=== PATIENT | male | born 1940 | race Caucasian/White ===

== ENCOUNTER 2016-09-06 13:24 | Emergency (ER) | payer MEDICARE, OTHER ==
--- NOTE | 2016-09-06 13:55 | REP ---
Clinical: Trauma. Technique: AP, lateral, bilateral oblique views. Findings: There is an oblique fracture involving the lateral malleolus with overlying soft tissue swelling. Widening to the contralateral aspect of the mortise suggests associated ligamentous injuries. Impression: Acute lateral malleolus fracture. Signed by Nate Cabrera MD 09/06/2016 01:46 P
--- NOTE | 2016-09-06 14:50 | EDDOCDS ---
Nurse's Notes [facility] Name: Arnaldo Navarro Age: 76 yrs Sex: Male : 1940 Arrival Date: 09/06/2016 Time: 13:24 Bed 13 Private MD: Mike Monk Diagnosis: Nondisplaced fracture of lateral malleolus of left fibula Presentation: 09/06 13:26 Presenting complaint: Patient states: slipped and twisted left ankle yesterday dy afternoon. swollen and bruised. The patients lower extremity has obvious bruising present on examination. has obvious swelling present on examination. Adult Sepsis Screening: The patient does not have new or worsening altered mentation. Patient's respiratory rate is less than 22. Systolic blood pressure is greater than 100. Patient has a qSOFA score of 0- Negative Sepsis Screen. Suicide/Homicide risk assessment- the patient denies having any suicidal and/or homicidal ideations and does not present with any other emotional, behavioral or mental health complaints. Status: Patient is not a family services manager or dependent. Transition of care: patient was not received from another setting of care. 13:26 Acuity: XANDER Level 4 dy 13:26 Method Of Arrival: Walkin/Carried/Asstd dy Triage Assessment: 13:28 General: Appears in no apparent distress. Pain: Location: left lateral ankle. dy Musculoskeletal: Capillary refill < 3 seconds No deformity noted Reports pain in left lateral ankle. Historical: - Allergies: No known drug Allergies; - Home Meds: 1. glipizide 2.5 mg Oral tr24 1 tabs once daily 2. lisinopril-hydrochlorothiazide 20-25 mg oral tab 1 tab once daily 3. simvastatin 20 mg Oral tab 1 tab once daily 4. loratadine 10 mg Oral tab 1 tab once daily 5. metformin 500 mg oral tab 1 tab three times a day 6. allopurinol 300 mg Oral tab 0.5 tab once daily 7. fluocinonide 0.05 % topical oint 2 times per day 8. betamethasone valerate 0.1 % Topical crea once daily - PMHx: Hypercholesterolemia; Hypertension; Asthma; Diabetes - NIDDM: controlled; Gout; - PSHx: none; - Social history: Smoking status: Patient states was never smoker of tobacco. No barriers to communication noted, The patient speaks fluent Turkish, Speaks appropriately for age. - Family history: Not pertinent. - : The pt / caregiver states he / she is not on anticoagulants. Home medication list is obtained from the patient. - Exposure Risk Screening:: None identified. Screenin:46 Screening information is obtained from the patient. Fall risk: No risks identified. jo3 Assistance ADL's: requires no assistance with activities of daily living. Abuse/DV Screen: The patient / caregiver reports he/she is: not in a situation that causes fear, pain or injury. Nutritional screening: No deficits noted. Advance Directives: There is no active DNR order. home support is adequate. Assessment: 14:03 General: Appears in no apparent distress, comfortable, Behavior is appropriate for age, jo3 cooperative, pleasant. Neurological: Level of Consciousness is awake, alert, Oriented to person, place, time. Respiratory: Airway is patent Respiratory effort is even, unlabored. Derm: Skin is pink, warm & dry. Musculoskeletal: Left lower leg with +2-+3 edema from mid calf to foot. Significant ecchymosis to NICO ankle and foot and dorsal aspect of left foot. 14:46 Reassessment: Pt instructed on crutches and continues to ambulated with full weight jo3 bearing on left foot whilst carrying crutches. Pt redirected to utilize crutches and not weight bear and he continues. discharged via wheelchair to his car . Vital Signs: 13:25 BP 167 / 95; Pulse 94; Resp 18 S; Temp 97.3; Pulse Ox 96% on R/A; Weight 79.38 kg (R); dd6 Height 5 ft. 8 in. (172.72 cm) (R); 14:27 BP 140 / 94; Resp 20; Temp 98.1(O); Pain 0/10; ls3 14:31 Pulse 102; Pulse Ox 94% on R/A; rn1 13:25 Body Mass Index 26.61 (79.38 kg, 172.72 cm) dd6 Vitals: 13:25 Log In Time: September 06, 2016 at 13:23. dd6 ED Course: 13:25 Patient visited by Dylon Marin PCA. dd6 13:25 Mike Monk MD is Private Physician. dd6 13:25 Patient moved to Waiting dd6 13:26 Patient moved to Pre RCE dd6 13:27 Triage Initiated dy 13:36 Patient moved to 13 sd1 13:37 [facility] le 13:40 Patient visited by Teri Gonsalez FNP. le 13:40 Patient visited by Teri Gonsalez FNP. le 14:04 Patient visited by Claribel Esparza,EMANI. jo3 14:05 Baldemar León is Referral Physician. le 14:17 [facility] Payment Agreement was scanned into [employer] and attached to record. mm15 14:38 Ankle, Complete Returned. EDMS 14:46 The patient / caregiver is instructed regarding the plan of care and ED course. jo3 14:46 No IV's were initiated during this patient's visit. No procedures done that require jo3 assistance. Order Results: Radiology Order: Ankle, Complete Test: Ankle, Complete REASON FOR EXAMINATION: Trauma; Clinical: Trauma.; ; Technique: AP, lateral, bilateral oblique views.; ; Findings:; There is an oblique fracture involving the lateral malleolus with overlying soft; tissue swelling. Widening to the contralateral aspect of the mortise suggests; associated ligamentous injuries.; ; Impression:; Acute lateral malleolus fracture.; ; ; Signed by; Nate Cabrera MD 09/06/2016 01:46 P; Outcome: 14:06 Discharge ordered by Provider. le 14:46 Discharge Assessment: Patient awake, alert and oriented x 3. No cognitive and/or jo3 functional deficits noted. Patient verbalized understanding of disposition instructions. patient administered narcotics - no. The following High Risk Discharge criteria are identified: None. Discharged to home ambulatory. Condition: stable. Discharge instructions given to patient, Instructed on discharge instructions, follow up and referral plans. crutch walking, Demonstrated understanding of instructions, crutch walking, Pt was receptive of discharge instructions/ teaching. No special radiology studies were completed. Property sent home with patient. 14:49 Patient left the ED. jo3 Signatures: Dispatcher MedHo EDMS Cindy Morse MD MD sd1 Jamin Schneider, RN RN Claribel Juarez,RN RN jo3 Teri Gonsalez FNP FNP le [place]au, Daniell, COUNSELING PSYCHOLOGIST COUNSELING PSYCHOLOGIST dd6 Renetta Graves mm15 Bartolo Murray rn1 Kassidy Jauregui, COUNSELING PSYCHOLOGIST COUNSELING PSYCHOLOGIST ls3 Corrections: (The following items were deleted from the chart) 13:40 13:28 Home Meds: jose [facility]witt; dy dy MTDD
--- NOTE | 2016-09-06 14:50 | EDDOCDS ---
Physician Documentation [facility] Name: Arnaldo Navarro Age: 76 yrs Sex: Male : 1940 Arrival Date: 09/06/2016 Time: 13:24 Bed 13 Private MD: Mike Monk Disposition: 09/06 14:17 Critical Care: Critical care not applicable. le Disposition: 09/06/16 14:06 Discharged to Home/Self Care. Impression: Nondisplaced fracture of lateral malleolus of left fibula. - Condition is Stable. - Discharge Instructions: Elastic Bandage and RICE, Ankle Fracture, Cast or Splint Care, Crutch Use. - Medication Reconciliation, Local Pharmacy Hours form. - Follow up: Baldemar León; When: Today; Reason: Continuance of care. - Problem is new. - Symptoms are unchanged. - Notes: No weight bearing until authorized by Dr León Go directly to his office as he is expecting you Return to the ED for any further concerns Historical: - Allergies: No known drug Allergies; - Home Meds: 1. glipizide 2.5 mg Oral tr24 1 tabs once daily 2. lisinopril-hydrochlorothiazide 20-25 mg oral tab 1 tab once daily 3. simvastatin 20 mg Oral tab 1 tab once daily 4. loratadine 10 mg Oral tab 1 tab once daily 5. metformin 500 mg oral tab 1 tab three times a day 6. allopurinol 300 mg Oral tab 0.5 tab once daily 7. fluocinonide 0.05 % topical oint 2 times per day 8. betamethasone valerate 0.1 % Topical crea once daily - PMHx: Hypercholesterolemia; Hypertension; Asthma; Diabetes - NIDDM: controlled; Gout; - PSHx: none; - Social history: Smoking status: Patient states was never smoker of tobacco. No barriers to communication noted, The patient speaks fluent Icelandic, Speaks appropriately for age. - Family history: Not pertinent. - : The pt / caregiver states he / she is not on anticoagulants. Home medication list is obtained from the patient. - Exposure Risk Screening:: None identified. Vital Signs: 13:25 BP 167 / 95; Pulse 94; Resp 18 S; Temp 97.3; Pulse Ox 96% on R/A; Weight 79.38 kg / 175 dd6 lbs (R); Height 5 ft. 8 in. (172.72 cm) (R); 14:27 BP 140 / 94; Resp 20; Temp 98.1(O); Pain 0/10; ls3 14:31 Pulse 102; Pulse Ox 94% on R/A; rn1 13:25 Body Mass Index 26.61 (79.38 kg, 172.72 cm) dd6 MDM: 13:30 Ankle, Complete Ordered. EDMS 14:05 Crutches ordered. le 14:09 Financial registration complete. mm15 14:17 [facility] Payment Agreement was scanned into [employer] and attached to record. mm15 Signatures: Dispatcher MedHost EDJamin Osullivan RN RN dy [place], JenniferRN RN Teri Gray, UNDERGROUND DISTRIBUTION ENGINEER UNDERGROUND DISTRIBUTION ENGINEER Renetta Tyson mm15 The chart was reviewed and I authenticate all verbal orders and agree with the evaluation and treatment provided.Corrections: (The following items were deleted from the chart) 13:40 13:28 [place] Meds: [facility]; elaine henry Attachments: 14:17 [facility] Payment Agreement mm15 DAE
--- NOTE | 2016-09-08 15:50 | EDDOCDS ---
Nurse's Notes [facility] Name: Arnaldo Navarro Age: 76 yrs Sex: Male : 1940 Arrival Date: 09/06/2016 Time: 13:24 Bed 13 Private MD: Mike Monk Diagnosis: Nondisplaced fracture of lateral malleolus of left fibula Presentation: 09/06 13:26 Presenting complaint: Patient states: slipped and twisted left ankle yesterday dy afternoon. swollen and bruised. The patients lower extremity has obvious bruising present on examination. has obvious swelling present on examination. Adult Sepsis Screening: The patient does not have new or worsening altered mentation. Patient's respiratory rate is less than 22. Systolic blood pressure is greater than 100. Patient has a qSOFA score of 0- Negative Sepsis Screen. Suicide/Homicide risk assessment- the patient denies having any suicidal and/or homicidal ideations and does not present with any other emotional, behavioral or mental health complaints. Status: Patient is not a technical services specialist or dependent. Transition of care: patient was not received from another setting of care. 13:26 Acuity: XANDER Level 4 dy 13:26 Method Of Arrival: Walkin/Carried/Asstd dy Triage Assessment: 13:28 General: Appears in no apparent distress. Pain: Location: left lateral ankle. dy Musculoskeletal: Capillary refill < 3 seconds No deformity noted Reports pain in left lateral ankle. Historical: - Allergies: No known drug Allergies; - Home Meds: 1. glipizide 2.5 mg Oral tr24 1 tabs once daily 2. lisinopril-hydrochlorothiazide 20-25 mg oral tab 1 tab once daily 3. simvastatin 20 mg Oral tab 1 tab once daily 4. loratadine 10 mg Oral tab 1 tab once daily 5. metformin 500 mg oral tab 1 tab three times a day 6. allopurinol 300 mg Oral tab 0.5 tab once daily 7. fluocinonide 0.05 % topical oint 2 times per day 8. betamethasone valerate 0.1 % Topical crea once daily - PMHx: Hypercholesterolemia; Hypertension; Asthma; Diabetes - NIDDM: controlled; Gout; - PSHx: none; - Social history: Smoking status: Patient states was never smoker of tobacco. No barriers to communication noted, The patient speaks fluent Macedonian, Speaks appropriately for age. - Family history: Not pertinent. - : The pt / caregiver states he / she is not on anticoagulants. Home medication list is obtained from the patient. - Exposure Risk Screening:: None identified. Screenin:46 Screening information is obtained from the patient. Fall risk: No risks identified. jo3 Assistance ADL's: requires no assistance with activities of daily living. Abuse/DV Screen: The patient / caregiver reports he/she is: not in a situation that causes fear, pain or injury. Nutritional screening: No deficits noted. Advance Directives: There is no active DNR order. home support is adequate. Assessment: 14:03 General: Appears in no apparent distress, comfortable, Behavior is appropriate for age, jo3 cooperative, pleasant. Neurological: Level of Consciousness is awake, alert, Oriented to person, place, time. Respiratory: Airway is patent Respiratory effort is even, unlabored. Derm: Skin is pink, warm & dry. Musculoskeletal: Left lower leg with +2-+3 edema from mid calf to foot. Significant ecchymosis to NICO ankle and foot and dorsal aspect of left foot. 14:46 Reassessment: Pt instructed on crutches and continues to ambulated with full weight jo3 bearing on left foot whilst carrying crutches. Pt redirected to utilize crutches and not weight bear and he continues. discharged via wheelchair to his car . Vital Signs: 13:25 BP 167 / 95; Pulse 94; Resp 18 S; Temp 97.3; Pulse Ox 96% on R/A; Weight 79.38 kg (R); dd6 Height 5 ft. 8 in. (172.72 cm) (R); 14:27 BP 140 / 94; Resp 20; Temp 98.1(O); Pain 0/10; ls3 14:31 Pulse 102; Pulse Ox 94% on R/A; rn1 13:25 Body Mass Index 26.61 (79.38 kg, 172.72 cm) dd6 Vitals: 13:25 Log In Time: September 06, 2016 at 13:23. dd6 ED Course: 13:25 Patient visited by Dylon Marin PCA. dd6 13:25 Mike Monk MD is Private Physician. dd6 13:25 Patient moved to Waiting dd6 13:26 Patient moved to Pre RCE dd6 13:27 Triage Initiated dy 13:36 Patient moved to 13 sd1 13:37 Teri [facility]onsalez FNP [facility] le 13:40 Patient visited by Teri Gonsalez FNP. le 13:40 Patient visited by Teri Gonsalez FNP. le 14:04 Patient visited by Claribel Esparza RN. jo3 14:05 Baldemar León is Referral Physician. le 14:17 [facility] Payment Agreement was scanned into [email or web address] and attached to record. mm15 14:38 Ankle, Complete Returned. EDMS 14:46 The patient / caregiver is instructed regarding the plan of care and ED course. jo3 14:46 No IV's were initiated during this patient's visit. No procedures done that require jo3 assistance. 14:52 Patient name changed from Mcintosh\S\\S\Fohr\S\ to Mcintosh\S\J\S\Fohr. EDMS 09/07 08:51 T-Sheet-- Draft Copy was scanned into [email or web address] and attached to record. [facility] Order Results: Radiology Order: Ankle, Complete Test: Ankle, Complete REASON FOR EXAMINATION: Trauma; Clinical: Trauma.; ; Technique: AP, lateral, bilateral oblique views.; ; Findings:; There is an oblique fracture involving the lateral malleolus with overlying soft; tissue swelling. Widening to the contralateral aspect of the mortise suggests; associated ligamentous injuries.; ; Impression:; Acute lateral malleolus fracture.; ; ; Signed by; Nate Cabrera MD 09/06/2016 01:46 P; Outcome: 09/06 14:06 Discharge ordered by Provider. le 14:46 Discharge Assessment: Patient awake, alert and oriented x 3. No cognitive and/or jo3 functional deficits noted. Patient verbalized understanding of disposition instructions. patient administered narcotics - no. The following High Risk Discharge criteria are identified: None. Discharged to home ambulatory. Condition: stable. Discharge instructions given to patient, Instructed on discharge instructions, follow up and referral plans. crutch walking, Demonstrated understanding of instructions, crutch walking, Pt was receptive of discharge instructions/ teaching. No special radiology studies were completed. Property sent home with patient. 14:49 Patient left the ED. jo3 Signatures: Dispatcher MedThe [facility] Shepherd Home [facility] Rehabilitation HospitalCindy Salguero MD MD sd1 Jamin Schneider, RN RN dy Claribel Esparza,RN RN jo3 Teri Gonsalez, MANAGER INTERNAL MANAGER INTERNAL Dylon Wilson, BOBBIN WINDER BOBBIN WINDER dd6 Renetta Graves mm15 Bartolo Murray rn1 aKssidy Jauregui, BOBBIN WINDER BOBBIN WINDER ls3 Cindy Marsh Corrections: (The following items were deleted from the chart) 13:40 13:28 [place] Meds: jose blanc flint; dy dy Chart Complete MTDD
--- NOTE | 2016-09-08 15:50 | EDDOCDS ---
Physician Documentation [facility] Name: Arnaldo Navarro Age: 76 yrs Sex: Male : 1940 Arrival Date: 09/06/2016 Time: 13:24 Bed 13 Private MD: Mike Monk Disposition: 09/06 14:17 Critical Care: Critical care not applicable. le Disposition: 09/06/16 14:06 Discharged to Home/Self Care. Impression: Nondisplaced fracture of lateral malleolus of left fibula. - Condition is Stable. - Discharge Instructions: Elastic Bandage and RICE, Ankle Fracture, Cast or Splint Care, Crutch Use. - Medication Reconciliation, Local Pharmacy Hours form. - Follow up: Baldemar León; When: Today; Reason: Continuance of care. - Problem is new. - Symptoms are unchanged. - Notes: No weight bearing until authorized by Dr León Go directly to his office as he is expecting you Return to the ED for any further concerns Historical: - Allergies: No known drug Allergies; - Home Meds: 1. glipizide 2.5 mg Oral tr24 1 tabs once daily 2. lisinopril-hydrochlorothiazide 20-25 mg oral tab 1 tab once daily 3. simvastatin 20 mg Oral tab 1 tab once daily 4. loratadine 10 mg Oral tab 1 tab once daily 5. metformin 500 mg oral tab 1 tab three times a day 6. allopurinol 300 mg Oral tab 0.5 tab once daily 7. fluocinonide 0.05 % topical oint 2 times per day 8. betamethasone valerate 0.1 % Topical crea once daily - PMHx: Hypercholesterolemia; Hypertension; Asthma; Diabetes - NIDDM: controlled; Gout; - PSHx: none; - Social history: Smoking status: Patient states was never smoker of tobacco. No barriers to communication noted, The patient speaks fluent Chinese, Speaks appropriately for age. - Family history: Not pertinent. - : The pt / caregiver states he / she is not on anticoagulants. Home medication list is obtained from the patient. - Exposure Risk Screening:: None identified. Vital Signs: 13:25 BP 167 / 95; Pulse 94; Resp 18 S; Temp 97.3; Pulse Ox 96% on R/A; Weight 79.38 kg / 175 dd6 lbs (R); Height 5 ft. 8 in. (172.72 cm) (R); 14:27 BP 140 / 94; Resp 20; Temp 98.1(O); Pain 0/10; ls3 14:31 Pulse 102; Pulse Ox 94% on R/A; rn1 13:25 Body Mass Index 26.61 (79.38 kg, 172.72 cm) dd6 MDM: 13:30 Ankle, Complete Ordered. EDMS 14:05 Crutches ordered. le 14:09 Financial registration complete. 14:17 [facility] Payment Agreement was scanned into [employer] and attached to record. 09/07 08:51 T-Sheet-- Draft Copy was scanned into [employer] and attached to record. [facility] Signatures: Dispatcher MedHost EDJamin Osullivan, RN Claribel Mancia RN RN jo3 Teri Gonsalez, ELECTRONICS COMMODITY MANAGER ELECTRONICS COMMODITY MANAGER Renetta Tyson mm15 Cindy Marsh [facility] The chart was reviewed and I authenticate all verbal orders and agree with the evaluation and treatment provided.Corrections: (The following items were deleted from the chart) 09/06 13:40 13:28 Home Meds: [facility]; dy dy Attachments: 14:17 [facility] Payment Agreement 09/07 08:51 T-Sheet-- Draft Copy [facility] Chart Complete MTDD
--- NOTE | 2016-09-08 15:50 | EDDOCDS ---
Physician Documentation [facility] Name: Arnaldo Navarro Age: 76 yrs Sex: Male : 1940 Arrival Date: 09/06/2016 Time: 13:24 Bed 13 Private MD: Mike Monk Disposition: 09/06 14:17 Critical Care: Critical care not applicable. le Disposition: 09/06/16 14:06 Discharged to Home/Self Care. Impression: Nondisplaced fracture of lateral malleolus of left fibula. - Condition is Stable. - Discharge Instructions: Elastic Bandage and RICE, Ankle Fracture, Cast or Splint Care, Crutch Use. - Medication Reconciliation, Local Pharmacy Hours form. - Follow up: Baldemar León; When: Today; Reason: Continuance of care. - Problem is new. - Symptoms are unchanged. - Notes: No weight bearing until authorized by Dr León Go directly to his office as he is expecting you Return to the ED for any further concerns Historical: - Allergies: No known drug Allergies; - Home Meds: 1. glipizide 2.5 mg Oral tr24 1 tabs once daily 2. lisinopril-hydrochlorothiazide 20-25 mg oral tab 1 tab once daily 3. simvastatin 20 mg Oral tab 1 tab once daily 4. loratadine 10 mg Oral tab 1 tab once daily 5. metformin 500 mg oral tab 1 tab three times a day 6. allopurinol 300 mg Oral tab 0.5 tab once daily 7. fluocinonide 0.05 % topical oint 2 times per day 8. betamethasone valerate 0.1 % Topical crea once daily - PMHx: Hypercholesterolemia; Hypertension; Asthma; Diabetes - NIDDM: controlled; Gout; - PSHx: none; - Social history: Smoking status: Patient states was never smoker of tobacco. No barriers to communication noted, The patient speaks fluent Ukrainian, Speaks appropriately for age. - Family history: Not pertinent. - : The pt / caregiver states he / she is not on anticoagulants. Home medication list is obtained from the patient. - Exposure Risk Screening:: None identified. Vital Signs: 13:25 BP 167 / 95; Pulse 94; Resp 18 S; Temp 97.3; Pulse Ox 96% on R/A; Weight 79.38 kg / 175 dd6 lbs (R); Height 5 ft. 8 in. (172.72 cm) (R); 14:27 BP 140 / 94; Resp 20; Temp 98.1(O); Pain 0/10; ls3 14:31 Pulse 102; Pulse Ox 94% on R/A; rn1 13:25 Body Mass Index 26.61 (79.38 kg, 172.72 cm) dd6 MDM: 13:30 Ankle, Complete Ordered. EDMS 14:05 Crutches ordered. le 14:09 Financial registration complete. 14:17 [facility] Payment Agreement was scanned into [employer] and attached to record. 09/07 08:51 T-Sheet-- Draft Copy was scanned into [employer] and attached to record. [facility] Signatures: Dispatcher MedHost EDJamin Ousllivan, RN Claribel Mancia RN RN jo3 Teri Gonsalez, DIRECTOR OF PRODUCT DEVELOPMENT DIRECTOR OF PRODUCT DEVELOPMENT Renetta Tyson mm15 Cindy [address] [facility] The chart was reviewed and I authenticate all verbal orders and agree with the evaluation and treatment provided.Corrections: (The following items were deleted from the chart) 09/06 13:40 13:28 Home Meds: [facility]; dy dy Attachments: 14:17 [facility] Payment Agreement 09/07 08:51 T-Sheet-- Draft Copy [facility] Chart Complete MTDD
== END 2016-09-06 14:49 | disposition home or self-care (01) ==
LOC: M ED 13:24
DX: S82.65XA Nondisplaced fracture of lateral malleolus of left fibula, initial encounter for closed fracture (principal); W00.0XXA Fall on same level due to ice and snow, initial encounter; Y92.410 Unspecified street and highway as the place of occurrence of the external cause; Y93.01 Activity, walking, marching and hiking; Y99.8 Other external cause status; E78.00 Pure hypercholesterolemia, unspecified; I10 Essential (primary) hypertension; J45.909 Unspecified asthma, uncomplicated; E11.9 Type 2 diabetes mellitus without complications; M10.9 Gout, unspecified; Z79.84 Long term (current) use of oral hypoglycemic drugs; Z79.899 Other long term (current) drug therapy

== ENCOUNTER → 2017-01-17 | Outpatient (CLI) | payer MEDICARE, OTHER ==
[2017-01-17 13:31] LABS: MEAN CORPUSCULAR HEMOGLOBIN 30.4 pg (27.0-33.0); MEAN CORPUSCULAR HGB CONC 32.8 g/dl (32.0-36.5); MEAN CORPUSCULAR VOLUME 92.5 fl (80.0-96.0); RED CELL DISTRIBUTION WIDTH 13.9 % (11.5-14.5); WHITE BLOOD COUNT 11.4 K/mm3 (4.0-10.0)
[2017-01-17 13:35] LABS: ALBUMIN 3.6 GM/DL (3.2-5.2); ALKALINE PHOSPHATASE 68 U/L (45-117); ALT/SGPT 23 U/L (12-78); ANION GAP 9 MEQ/L (8-16); AST/SGOT 15 U/L (15-37); BILIRUBIN,TOTAL 0.5 MG/DL (0.2-1.0); BLOOD UREA NITROGEN 24 MG/DL (7-18); CALCIUM LEVEL 9.5 MG/DL (8.8-10.2); CARBON DIOXIDE LEVEL 28 MEQ/L (21-32); CHLORIDE LEVEL 105 MEQ/L (98-107); CHOLESTEROL LEVEL 178 MG/DL (<200); CREATININE FOR GFR 1.05 MG/DL (0.70-1.30); GLOMERULAR FILTRATION RATE > 60.0 (>42); GLUCOSE, FASTING 154 MG/DL (83-110); POTASSIUM SERUM 4.3 MEQ/L (3.5-5.1); SODIUM LEVEL 142 MEQ/L (136-145); TOTAL PROTEIN 7.2 GM/DL (6.4-8.2); TRIGLYCERIDES LEVEL 266 MG/DL (<150)
== END ==
LOC: M LAB 12:34
PROVIDERS: ATTEND Family Medicine
DX: E11.9 Type 2 diabetes mellitus without complications (principal); N42.9 Disorder of prostate, unspecified

== ENCOUNTER → 2018-01-15 | Outpatient (CLI) | payer MEDICARE, OTHER ==
[2018-01-15 13:16] LABS: HEMATOCRIT 41.7 % (42.0-52.0); HEMOGLOBIN 13.7 g/dl (13.5-17.5); MEAN CORPUSCULAR HEMOGLOBIN 29.8 pg (27.0-33.0); MEAN CORPUSCULAR HGB CONC 32.9 g/dl (32.0-36.5); MEAN CORPUSCULAR VOLUME 90.7 fl (80.0-96.0); PLATELET COUNT, AUTOMATED 263 10^3/uL (150-450); RED CELL DISTRIBUTION WIDTH 14.4 % (11.5-14.5)
[2018-01-15 13:25] LABS: ADD MANUAL DIFFER YES; DIFF SLIDE NUMBER 279; POSITIVE DIFF POS FLAG; POSITIVE MORPH POS FLAG
[2018-01-15 13:39] LABS: ALKALINE PHOSPHATASE 58 U/L (45-117); ALT/SGPT 27 U/L (12-78); ANION GAP 5 MEQ/L (8-16); AST/SGOT 17 U/L (7-37); BILIRUBIN,TOTAL 0.4 MG/DL (0.2-1.0); BLOOD UREA NITROGEN 27 MG/DL (7-18); CALCIUM LEVEL 9.5 MG/DL (8.8-10.2); CARBON DIOXIDE LEVEL 31 MEQ/L (21-32); CHLORIDE LEVEL 105 MEQ/L (98-107); CHOLESTEROL LEVEL 160 MG/DL (<200); CREATININE FOR GFR 1.11 MG/DL (0.70-1.30); GLOMERULAR FILTRATION RATE > 60.0 (>42); GLUCOSE, FASTING 144 MG/DL (70-100); HDL CHOLESTEROL 45 MG/DL (>40); LDL CHOLESTEROL 80.8 MG/DL (<100); POTASSIUM SERUM 4.5 MEQ/L (3.5-5.1); SODIUM LEVEL 141 MEQ/L (136-145); TRIGLYCERIDES LEVEL 171 MG/DL (<150)
[2018-01-15 13:40] LABS: ALBUMIN 3.7 GM/DL (3.2-5.2); ALBUMIN/GLOBULIN RATIO 1.06 (1.00-1.93); CHOLESTEROL RISK RATIO 3.555 (<5); NON-HDL-C 115 MG/DL; PROSTATIC SPECIFIC AG MONITOR 7.43 NG/ML (< 4.0); TOTAL PROTEIN 7.2 GM/DL (6.4-8.2)
[2018-01-15 13:49] LABS: ATYPICAL LYMPH 5 % (0-5); EOSINOPHILS 9 % (0-5); LYMPHOCYTES 42 % (16-52); MONOCYTES 8 % (0-8); NEUTROPHILS 36 % (35-75); PLATELET ESTIMATE NORMAL (NORMAL)
[2018-01-15 13:50] LABS: ANISOCYTOSIS 1+; SMUDGE CELLS 2+
[2018-01-15 14:03] LABS: ESTIMATED AVERAGE GLUCOSE 157 MG/DL (60-110); HEMOGLOBIN A1c 7.1 %
== END ==
LOC: M LAB 12:31
DX: E11.9 Type 2 diabetes mellitus without complications (principal); N42.9 Disorder of prostate, unspecified
CPT/HCPCS: 80053

== ENCOUNTER → 2018-01-20 | Outpatient (CLI) | payer MEDICARE, OTHER ==
[2018-01-20 18:33] LABS: HEMATOCRIT 42.4 % (42.0-52.0); HEMOGLOBIN 13.8 g/dl (13.5-17.5); MEAN CORPUSCULAR HEMOGLOBIN 29.6 pg (27.0-33.0); MEAN CORPUSCULAR HGB CONC 32.5 g/dl (32.0-36.5); PLATELET COUNT, AUTOMATED 270 10^3/uL (150-450); RED BLOOD COUNT 4.66 10^6/uL (4.30-6.10); RED CELL DISTRIBUTION WIDTH 14.1 % (11.5-14.5)
[2018-01-20 18:34] LABS: SLIDE REVIEW Report; SOURCE PERIPHERAL SMEAR
[2018-01-20 18:35] LABS: REASON FOR REVIEW WBC/LEUKEMIA/BLAST
[2018-01-20 18:37] LABS: ADD MANUAL DIFFER YES; DIFF SLIDE NUMBER 361; POSITIVE DIFF POS FLAG
[2018-01-20 19:22] LABS: ATYPICAL LYMPH 2 % (0-5); BASOPHILS 1 % (0-4); EOSINOPHILS 2 % (0-5); LYMPHOCYTES 49 % (16-52); MONOCYTES 7 % (0-8); NEUTROPHILS 39 % (35-75)
[2018-01-20 19:23] LABS: PLATELET ESTIMATE NORMAL (NORMAL)
[2018-01-23 14:17] LABS: STRONGYLOIDES SERUM ANTIBODIES Negative (Negative)
== END ==
LOC: M LAB 17:16
DX: D72.829 Elevated white blood cell count, unspecified (principal)
CPT/HCPCS: 85025

== ENCOUNTER → 2018-07-31 | Outpatient (CLI) | payer MEDICARE, OTHER ==
[2018-07-31 16:53] LABS: HEMATOCRIT 33.8 % (42.0-52.0); HEMOGLOBIN 10.4 g/dl (13.5-17.5); MEAN CORPUSCULAR HEMOGLOBIN 27.8 pg (27.0-33.0); MEAN CORPUSCULAR HGB CONC 30.8 g/dl (32.0-36.5); MEAN CORPUSCULAR VOLUME 90.4 fl (80.0-96.0); PLATELET COUNT, AUTOMATED 381 10^3/uL (150-450); RED BLOOD COUNT 3.74 10^6/uL (4.30-6.10); RED CELL DISTRIBUTION WIDTH 14.2 % (11.5-14.5)
[2018-07-31 16:55] LABS: ADD MANUAL DIFFER YES; DIFF SLIDE NUMBER 246; POSITIVE DIFF POS FLAG; WHITE BLOOD COUNT 18.4 10^3/uL (4.0-10.0)
[2018-07-31 17:31] LABS: ALBUMIN/GLOBULIN RATIO 0.81 (1.00-1.93); ALKALINE PHOSPHATASE 79 U/L (45-117); ALT/SGPT 17 U/L (12-78); ANION GAP 9 MEQ/L (8-16); AST/SGOT 18 U/L (7-37); BILIRUBIN,TOTAL 0.4 MG/DL (0.2-1.0); BLOOD UREA NITROGEN 29 MG/DL (7-18); CALCIUM LEVEL 8.7 MG/DL (8.8-10.2); CARBON DIOXIDE LEVEL 30 MEQ/L (21-32); CHLORIDE LEVEL 104 MEQ/L (98-107); CREATININE FOR GFR 1.52 MG/DL (0.70-1.30); GLOMERULAR FILTRATION RATE 47.7 (>42); GLUCOSE, FASTING 160 MG/DL (70-100); POTASSIUM SERUM 4.7 MEQ/L (3.5-5.1); PROSTATIC SPECIFIC AG MONITOR 8.9 NG/ML (< 4.0); SODIUM LEVEL 143 MEQ/L (136-145); TOTAL PROTEIN 6.7 GM/DL (6.4-8.2)
[2018-07-31 17:37] LABS: ESTIMATED AVERAGE GLUCOSE 148 MG/DL (60-110); HEMOGLOBIN A1c 6.8 %
[2018-07-31 17:59] LABS: ERYTHROCYTE SEDIMENTATION RATE 82 mm/hr (0-20)
[2018-07-31 19:52] LABS: BASOPHILS 2 % (0-4); EOSINOPHILS 3 % (0-5); LYMPHOCYTES 49 % (16-52); MONOCYTES 1 % (0-8); NEUTROPHILS 45 % (35-75); PLATELET ESTIMATE NORMAL (NORMAL)
== END ==
LOC: M LAB 15:14
DX: E11.9 Type 2 diabetes mellitus without complications (principal); N42.9 Disorder of prostate, unspecified; D72.829 Elevated white blood cell count, unspecified; R63.4 Abnormal weight loss; R19.7 Diarrhea, unspecified
CPT/HCPCS: 84443